=== PATIENT | female | born 1990 | race Caucasian/White ===

== ENCOUNTER 2019-12-23 04:56 | Day surgery (SDC) | payer OTHER ==
[2019-12-19 10:45] VITALS: BMI 22.6
[2019-12-23] MEDS ORDERED: ROCURONIUM BROMIDE 50 MG/5 ML SYRINGE ONE (07:26)
[2019-12-23] MEDS ORDERED: SUCCINYLCHOLINE CHLORIDE 200 MG/10 ML SYRINGE ONE (07:27)
[2019-12-23] MEDS ORDERED: EPHEDRINE SULFATE/0.9% NACL/PF 50 MG/10 ML SYRINGE NR ONE (07:27)
[2019-12-23] MEDS ORDERED: PROPOFOL 20 ML ONE ×2 (07:27)
[2019-12-23] MEDS ORDERED: MIDAZOLAM HCL 2 MG/2 ML SINGLE DOSE VIAL ONE (07:27)
[2019-12-23] MEDS ORDERED: fentaNYL CITRATE 250 MCG/5 ML VIAL ONE (07:27)
--- NOTE | 2019-12-23 07:59 | HP ---
Satellite [facility] - Chief Complaint History Source: Patient Limitations to Obtaining History: No Limitations - Past Medical History Allergies/Adverse Reactions: Allergies Allergy/AdvReac Type Severity Reaction Status Date / Time No Known Allergies Allergy Verified 12/23/19 07:08 ...LMP: 11/25/19 - Current Medications Current Medications: Home Medications Medication Instructions Recorded Phenazopyridine HCl [Azo Standard] 95 mg PO TID 12/19/19 Satellite Physical Exam - Physical Examination Vital Signs: Vital Signs Period Temp Pulse Resp BP Sys/Farah Pulse Ox Last 24 Hr 98.2 F 86 20 122/80 99-99 General Appearance: Well Nourished, Well Developed ENT: Clear Breasts: Soft, Non-Tender Abdomen: Soft Extremities: No edema Pelvic Exam: Within normal limits External Genitalia, Within normal limits Vagina, Within normal limits Cervix, Within normal limits Uterus, Other Adenexa (ovarian cyst) Neurological: Intact, Alert, Oriented Satellite Impression/Plan - Impression/Plan Operative Procedure: Robotic laparoscopic ovarian cystectomy. & coagulation of endometriosis Date to be Performed: 12/23/19
[2019-12-23] MEDS ORDERED: ceFAZolin SODIUM 1 GM VIAL IVPB ONE (08:05)
[2019-12-23] MEDS ORDERED: BUPIVACAINE HCL/PF 0.5% (5MG/ML) 10 ML VIAL IJ ONE ×2 (08:08→09:30)
[2019-12-23] MEDS ORDERED: DESFLURANE GAS 240 ML BOTTLE IH ONE (08:55)
[2019-12-23] MEDS ORDERED: ceFAZolin SODIUM 1 GM VIAL ONE (08:56)
[2019-12-23] MEDS ORDERED: DEXAMETHASONE SOD PHOSPHATE 4 MG/1 ML VIAL ONE (08:56)
[2019-12-23] MEDS ORDERED: KETOROLAC TROMETHAMINE 30 MG/1 ML VIAL ONE (08:56)
[2019-12-23] MEDS ORDERED: LIDOCAINE HCL 2% JELLY (5 ML/TUBE) ONE (08:56)
[2019-12-23] MEDS ORDERED: LIDOCAINE HCL/PF 2% SDV 5ML VIAL ONE (08:56)
[2019-12-23] MEDS ORDERED: NEOSTIGMINE METHYLSULFATE 0.5 MG/ML - 10 ML MDV ONE (09:29)
[2019-12-23] MEDS ORDERED: GLYCOPYRROLATE 0.2 MG/1 ML VIAL ONE (09:37)
[2019-12-23] MEDS ORDERED: ONDANSETRON 4 MG/2 ML VIAL IVPUSH PRN (10:22)
[2019-12-23] MEDS ORDERED: oxyCODONE HCL 5 MG TABLET PO PRN (10:22)
[2019-12-23] MEDS ORDERED: LACTATED RINGERS SOLUTION 1,000 ML IV SCH (10:30)
[2019-12-23 11:28] LABS: HEMATOCRIT 27.1 % (32.4-45.2); HEMOGLOBIN 8.8 GM/dL (10.7-15.3); MCH 27.6 pg (25.7-33.7); MCHC 32.4 g/dl (32.0-36.0); MEAN CELL VOLUME 85.2 fl (80-96); MEAN PLT VOLUME 8.5 fl (7.5-11.1); PLATELET COUNT 291 K/MM3 (134-434); RBC 3.18 M/mm3 (3.60-5.2); RDW 14.6 % (11.6-15.6); WHITE BLOOD COUNT 9.4 K/mm3 (4.0-10.0)
[2019-12-23] MEDS ORDERED: oxyCODONE HCL 5 MG TABLET ONE (12:23)
--- NOTE | 2019-12-23 12:52 | OP ---
Operative Note - Note: Operative Date: 12/23/19 Pre-Operative Diagnosis: Endometreosis, ovarian cyst Operation: Robotic assisted laparoscopic bilateral ovarian cystectomy, MONY, coagulation of endometreosis/removal of endometroma Post-Operative Diagnosis: Other (bilateral endometroma, bilateral hydrosalpinx, adhesions, large @6cm myoma, PID) Surgeon: Matilde Valdez Racquet Maker: Britney Ramos Anesthesiologist/CHEMICAL DEPENDENCY ATTENDANT: Lise Atwood Anesthesia: General, Local Specimens Removed: ovarian cyst, endometrial tissue Estimated Blood Loss (mls): 250 Drains, Volume Out (mls): 300 (pang) Operative Report Dictated: Yes
--- NOTE | 2019-12-23 12:54 | SURG ---
Surgery Telephone Sales Agent Note Telephone Sales Agent: Britney Ramos PA-C Date of Service: 12/23/19 Diagnosis: Endometreosis, ovarian cyst Procedure: Robotic assisted laparoscopic bilateral ovarian cystectomy, MONY, coagulation of endometreosis/removal of endometroma I was present for the entirety of the operative procedure. For further detail, please refer to operative report. Visit type - Case Type Case Type: Scheduled - Emergency Emergency Visit: No - New patient This patient is new to me today: Yes Date on this admission: 12/23/19
[2019-12-23 14:20] LABS: HEMATOCRIT 25.3 % (32.4-45.2); MCH 27.1 pg (25.7-33.7); MCHC 31.8 g/dl (32.0-36.0); MEAN CELL VOLUME 85.2 fl (80-96); PLATELET COUNT 283 K/MM3 (134-434); RBC 2.97 M/mm3 (3.60-5.2); RDW 14.3 % (11.6-15.6); WHITE BLOOD COUNT 11.7 K/mm3 (4.0-10.0)
[2019-12-23 14:49] VITALS: BP 110/70; PULSE 78; TEMP 97.8
--- NOTE | 2019-12-25 16:53 | PATH ---
Surgical Pathology Report Patient Name: TOMMY JEAN [facility]. Rec. #: [id number] /Age/Gender: 1990 (Age: 29) / F Account: [id number] Location: AMBULATORY SURG Taken: 12/23/2019 Received: 12/23/2019 Reported: 12/25/2019 Physicians: Matilde Valdez M.D. Specimen(s) Received A: LEFT OVARIAN CYST WALL (ENDOMETRIOMA) B: RIGHT OVARIAN CYST WALL (ENDOMETRIOMA) Clinical History Endometriosis, ovarian cyst Final Diagnosis A. OVARIAN CYST WALL (ENDOMETRIOMA), LEFT, ROBOTIC OVARIAN CYSTECTOMY: OVARIAN TISSUE WITH ENDOMETRIOSIS. SEE COMMENT. B. OVARIAN CYST WALL (ENDOMETRIOMA), RIGHT, ROBOTIC OVARIAN CYSTECTOMY: OVARIAN TISSUE WITH OLD HEMORRHAGE CONSISTENT WITH ENDOMETRIOSIS. SEE COMMENT. Comment: Immunohistochemical stains performed at [facility], [place] ([id number]) and interpreted at [facility] show CD10 highlights endometrial stroma, supporting the above diagnosis. Positive and negative controls (internal if applicable) show appropriate results. Electronically Signed Joyce Ram M.D. Gross Description A. Received in formalin labeled "left ovarian cyst wall," is a 2.2 x 2.0 x 0.1 cm aggregate of hall collins soft tissue fragments. The specimen is entirely submitted in 2 cassettes. B. Received in formalin labeled "right ovarian cyst wall," is a 2.7 x 2.0 x 0.3 cm aggregate of multiple hall-brown soft tissue fragments. The specimen is entirely submitted in 2 cassettes. /12/23/2019 saudi/12/23/2019
--- NOTE | 2019-12-31 08:25 | OP ---
DATE OF OPERATION: 12/23/2019 PREOPERATIVE DIAGNOSES: Endometriosis, ovarian cyst. OPERATION: Robotic assisted laparoscopic bilateral ovarian cystectomy and coagulation of endometriosis and removal of endometrioma. POSTOPERATIVE DIAGNOSES: Bilateral endometrioma, bilateral hydrosalpinx, adhesions and large 6-cm myoma and pelvic inflammatory disease. SURGEON: Matilde Valdez MD PRIMER WATERPROOFING MACHINE ADJUSTER: DAVID Mathur SURGICAL NURSE: Lise Atwood, REF-BIOMETRICS INSTRUCTOR ANESTHESIA: General. SPECIMENS REMOVED: Ovarian cyst and endometriosis tissue. ESTIMATED BLOOD LOSS: 250 mL. PROCEDURE: Patient was taken to the operating room, placed in dorsal lithotomy position, prepped and draped in the usual sterile fashion. A timeout was performed in accordance with hospital regulation. Chavarria catheter was inserted into the bladder. Attention was then drawn to the umbilicus where an 8-mm umbilical incision was made. A Veress needle was inserted into the cavity, approximately 3-4 L of CO2 was insufflated in the cavity. Veress needle was then removed, and 8-mm trocar was then inserted. Laparoscope and camera were attached. Visualization revealed severe pelvic inflammatory disease and endometriosis and endometriomas, and ovarian cysts, bilateral hydrosalpinx and numerous adhesions, and a large 6-cm central myoma sitting on top of the uterus. Two trocars were placed on the left and 1 trocar placed on the right after 8-mm incisions were made, trocars were inserted under direct visualization. A 5-cm incision was made in the upper abdomen and a Airseal cannula was then inserted. Airseal cannula was then activated and CO2 was insufflated into the abdomen. The da Lesli robot was side docked to the patient's bedside and trocars were inserted in the da Lesli robot. After the trocars were inserted on the robot, instruments were then placed. The bipolar grasper, [place] grasper, as well as Endoshears were placed into position. After all instruments were placed in position, attention was then drawn to the control of the robot where lysis of adhesions was done. Severe adhesive disease was seen, and coagulation of endometriomas and bilateral endometriomas were seen and removed using sharp technique. The cyst of wall of the ovary was then cauterized, and endometriomas were removed bilaterally. Of note, both tubes were noted to have hydrosalpinx, and the cyst was submitted to pathology. Coagulation of any endometriosis as well as lysis of adhesions was done to have the abdomen clean of scarring. The 6-mm myoma was not removed due to lack of use of morcelator and was too large to be removed by incisions of robot. After 6 bilateral endometriomas were removed and submitted to pathology, hemostasis achieved, estimated blood loss was about 250 mL. All instruments were removed, CO2 was removed from the abdomen, da Lesli was undocked from the patient's bedside. Trocars were then removed. Incisions were closed using 3-0 Vicryl suture in subcuticular fashion. Wound was washed and dressed. Patient tolerated procedure well and was taken to recovery room in stable condition. Bernardo [id number] BETTINA
== END 2019-12-23 14:15 | disposition home or self-care (01) ==
LOC: JASUSAT 04:56
PROVIDERS: ATTEND Obstetrics & Gynecology
PROC: 0UB24ZZ Excision of Bilateral Ovaries, Percutaneous Endoscopic Approach (ICD-10-PCS; 2019-12-23)
PROC: 0UB94ZZ Excision of Uterus, Percutaneous Endoscopic Approach (ICD-10-PCS; principal; 2019-12-23 07:30)
DX: N80.0 Endometriosis of uterus (principal); N80.1 Endometriosis of ovary; N70.11 Chronic salpingitis; D25.9 Leiomyoma of uterus, unspecified; N73.9 Female pelvic inflammatory disease, unspecified
CPT/HCPCS: 36415; 84703; 85027; 86850; 86900; 86901; 88305-TC; 94760